=== PATIENT | male | born 1985 | race African-American/Black ===

== ENCOUNTER 2020-04-27 21:09 | Emergency (ER) | payer OTHER ==
[2020-04-27] MEDS ORDERED: KETOROLAC TROMETHAMINE INJ/PF 30 MG/1 ML SDV IV ONE (21:35)
--- NOTE | 2020-04-27 21:38 | ER Document Report ---
ED Medical Screen (RME) - General Chief Complaint: Flank Pain Stated Complaint: LEFT FLANK PAIN Time Seen by Provider: 04/27/20 21:27 - HPI Notes: 04/27/20 21:37 35-year-old male to the emergency department with complaints of left flank and left lower quadrant abdominal pain that began today. He denies any associated nausea or vomiting. He does admit to frequent urination. Denies any diarrhea. Last bowel movement was today. He states that he has not had any fevers or chills. He has never had a kidney stone before. He is never seen any blood in his urine. He denies any testicular pain or penile discharge. He denies any other complaints. On brief medical screening exam, he has tenderness to palpation in the left lower quadrant. I performed a brief medical screening exam on the patient determined that the patient needs further evaluation and management by main side provider. I have placed initial orders to help expedite care. Physical Exam - Vital signs Vitals: Temp Pulse Resp BP Pulse Ox 98.5 F 74 20 154/89 H 100 04/27/20 21:32 04/27/20 21:32 04/27/20 21:32 04/27/20 21:32 04/27/20 21:32 Course - Vital Signs Vital signs: Temp Pulse Resp BP Pulse Ox 98.5 F 74 20 154/89 H 100 04/27/20 21:32 04/27/20 21:32 04/27/20 21:32 04/27/20 21:32 04/27/20 21:32
[2020-04-27 22:09] LABS: APPEARANCE,URINE CLEAR; BILIRUBIN,URINE NEGATIVE (NEGATIVE); COLOR,URINE STRAW; GLUCOSE, URINE NEGATIVE (NEGATIVE); KETONES,URINE NEGATIVE (NEGATIVE); LEUKOCYTE ESTERASE,URINE NEGATIVE (NEGATIVE); NITRITE,URINE NEGATIVE (NEGATIVE); PROTEIN,URINE NEGATIVE (NEGATIVE); URINE SPECIFIC GRAVITY 1.006; UROBILINOGEN,URINE NEGATIVE mg/dL (<2.0)
[2020-04-27 22:21] LABS: ALBUMIN 4.9 g/dL (3.5-5.0); ALKALINE PHOSPHATASE 50 U/L (38-126); ANION GAP 11 (5-19); ASPARTATE AMINO TRANSFERASE 29 U/L (17-59); BILIRUBIN,TOTAL 0.6 mg/dL (0.2-1.3); BLOOD UREA NITROGEN 15 mg/dL (7-20); CALCIUM 10.1 mg/dL (8.4-10.2); CARBON DIOXIDE 25 mmol/L (22-30); CHLORIDE 101 mmol/L (98-107); GLUCOSE 95 mg/dL (75-110); POTASSIUM 4.2 mmol/L (3.6-5.0); TOTAL PROTEIN 8.3 g/dL (6.3-8.2)
[2020-04-27 22:29] LABS: ABSOLUTE EOSINOPHILS # (AUTO) 0.1 10^3/uL (0.0-0.6); ABSOLUTE LYMPHOCYTES (AUTO) 1.4 10^3/uL (0.5-4.7); ABSOLUTE MONOCYTES (AUTO) 0.6 10^3/uL (0.1-1.4); ABSOLUTE NEUT (AUTO) 3.1 10^3/uL (1.7-8.2); BASOPHILS % (AUTO) 0.7 % (0-2); EOSINOPHILS % (AUTO) 1.6 % (0-6); HEMATOCRIT 45.2 % (37.9-51.0); HEMOGLOBIN 15.3 g/dL (13.5-17.0); LYMPHOCYTES % (AUTO) 27.2 % (13-45); MEAN CORPUSCULAR HEMOGLOBIN 35.1 pg (27.0-33.4); MEAN CORPUSCULAR HGB CONC 33.9 g/dL (32.0-36.0); MEAN CORPUSCULAR VOLUME 104 fl (80-97); MONOCYTES % (AUTO) 11.4 % (3-13); PLATELET COUNT 225 10^3/uL (150-450); RED BLOOD COUNT 4.37 10^6/uL (4.35-5.55); RED CELL DISTRIBUTION WIDTH 13.3 % (11.5-14.0); SEGMENTED NEUTROPHILS % (AUTO) 59.1 % (42-78); TOTAL CELLS COUNTED % (AUTO) 100 %; WHITE BLOOD COUNT 5.2 10^3/uL (4.0-10.5)
--- NOTE | 2020-04-27 22:32 | RADIOLOGY REPORT (SQ) ---
CLINICAL INDICATION: left flank, LLQ abd pain, eval kidney stone. . TECHNIQUE: Noncontrast spiral axial CT imaging was obtained of the abdomen and pelvis with multiplanar reconstructions. This exam was performed according to our departmental dose-optimization program, which includes automated exposure control, adjustment of the mA and/or kV according to patient size and/or use of iterative reconstruction techniques. COMPARISON: None. CORRELATION: None. FINDINGS: Abdomen: The lung bases are grossly clear. The heart is of normal size. No evidence of pleural or pericardial fluid. The liver is of normal size contour and attenuation. The gallbladder is nondistended without inflammatory change. The pancreas is of grossly normal contour on this noncontrast examination. The spleen is unremarkable. The adrenals are unremarkable. The kidneys appear grossly normal without evidence of urolithiasis or hydronephrosis. Mild stranding within the peritoneal fat There is no evidence of free air. No free fluid. No bulky adenopathy. Abdominal aorta is nonaneurysmal. Pelvis: The bowel is nonobstructed. The bowel is unopacified with oral contrast. Pelvic contents are unremarkable. The appendix is normal. Visualized bones are unremarkable. Presumed bone island left ilium IMPRESSION: Imaging is degraded by patient motion, with resultant artifact. The best possible images were obtained. No acute intra-abdominal process. The cause of the patient's left flank and left lower quadrant pain is not identified on this examination.
--- NOTE | 2020-04-28 03:06 | ER Document Report ---
ED General - General Chief Complaint: Flank Pain Stated Complaint: LEFT FLANK PAIN Time Seen by Provider: 04/27/20 21:27 Primary Care Provider: [facility] [Provider Group] - Follow up as needed - HPI Notes: Patient is a 35-year-old male with no medical history who presents with left lower quadrant pain that began yesterday evening. He describes the pain as "squeezing "that is nonradiating. He reports an an increase in urination but denies dysuria, penile discharge, testicular pain, nausea, vomiting, diarrhea, constipation, fever, chest pain, shortness of breath. He has not taken any medicine medication for symptom relief. He denies any surgical history. He endorses smoking 1 to 2 cigars daily and social alcohol use, but denies recreational drug use. - Related Data Allergies/Adverse Reactions: No Known Allergies Allergy (Unverified 04/27/20 22:03) Home Medications: AMBIEN Past Medical History - General Information source: Patient - Social History Smoking Status: Current Every Day Smoker - Smokes 1-2 cigars daily Frequency of alcohol use: Social Drug Abuse: None Family History: Reviewed & Not Pertinent Review of Systems - Review of Systems Constitutional: No symptoms reported EENT: No symptoms reported Cardiovascular: No symptoms reported Respiratory: No symptoms reported Gastrointestinal: See HPI Genitourinary: See HPI Male Genitourinary: No symptoms reported Musculoskeletal: No symptoms reported Skin: No symptoms reported Hematologic/Lymphatic: No symptoms reported Neurological/Psychological: No symptoms reported Physical Exam - Vital signs Vitals: Temp Pulse Resp BP Pulse Ox 98.5 F 74 20 154/89 H 100 04/27/20 21:32 04/27/20 21:32 04/27/20 21:32 04/27/20 21:32 04/27/20 21:32 - Notes Notes: PHYSICAL EXAMINATION: VITALS: Vitals reviewed and within normal limits. GENERAL: Well-appearing, well-nourished and in no acute distress. HEAD: Atraumatic, normocephalic. EYES: Pupils equal, round, and reactive to light, extraocular movements intact, sclera anicteric, conjunctiva are normal. ENT: Nares patent. Moist mucous membranes. LUNGS: Breath sounds clear to auscultation bilaterally and equal. No wheezes, rales, or rhonchi. HEART: Regular, rate, and rhythm without murmurs. ABDOMEN: Soft, nontender, normoactive bowel sounds. No guarding, no rebound. No masses appreciated. GENITOURINARY: Normal external genitalia. Testicles nontender. No lesions or rashes visualized. EXTREMITIES: Normal range of motion, no pitting or edema. No cyanosis. NEUROLOGICAL: No focal neurological deficits. Moves all extremities spontaneously and on command. PSYCH: Normal mood, normal affect. SKIN: Warm, Dry, normal turgor, no rashes or lesions noted. Course - Re-evaluation Re-evalutation: Patient is a 35 y/o male with no medical hx who presents with LLQ abdominal pain that began yesterday afternoon. Vital signs are within normal limits. On exam, abdomen is soft and nontender with active bowel sounds in all 4 quadrants. CBC, CMP, UA are all unremarkable within normal limits. CT abdomen and pelvis shows motion artifact but no acute intra-abdominal process. Genitourinary exam performed and unremarkable. Based on presentation and workup I have a low suspicion for acute abdominal pathology. I discussed results with the patient and that some processes don't present immediately. I advised him to monitor his symptoms and return precautions were given. Follow up instructions given. Patient demonstrates decision making capacity. Patient understands and is in a greement with the plan. - Vital Signs Vital signs: Temp Pulse Resp BP Pulse Ox 97.7 F 56 L 18 140/76 H 99 04/28/20 03:11 04/28/20 03:31 04/28/20 03:31 04/28/20 03:31 04/28/20 03:31 - Laboratory Result Diagrams: 04/27/20 21:41 04/27/20 21:41 Laboratory results interpreted by me: 04/27/20 04/27/20 21:41 21:41 MCV 104 H MCH 35.1 H Total Protein 8.3 H - Diagnostic Test Radiology reviewed: Reports reviewed Radiology results interpreted by me: Abdomen/Pelvis CT 04/27/20 21:35 IMPRESSION: Imaging is degraded by patient motion, with resultant artifact. The best possible images were obtained. No acute intra-abdominal process. The cause of the patient's left flank and left lower quadrant pain is not identified on this examination. Discharge - Discharge Clinical Impression: Abdominal pain Qualifiers: Abdominal location: left lower quadrant Qualified Code(s): R10.32 - Left lower quadrant pain Condition: Stable Disposition: HOME, SELF-CARE Additional Instructions: Abdominal Pain There are many causes of abdominal pain. Pain can mean a serious problem requiring surgery (such as appendicitis). It can also be an innocent problem that goes away on its own (such as a viral infection). Often, time must pass to determine the cause of pain. The physician does not feel that hospitalization is necessary, at present. Things may change within the next 24 hours. Call the doctor or come back for re- examination if any problems occur, such as: (1) Pain that becomes more severe, steady, or becomes concentrated in one specific area. Also, pain that is more severe with movement or coughing. (2) Vomiting that persists or becomes more frequent. (3) Blood in the vomitus, urine, or bowel movements. Blood in the stool may have a tarry or black appearance. (4) Shaking chills or fever greater than 100 degrees F. (5) The abdomen becomes more distended or swollen. (6) Bowel movements cease. (7) Failure to improve as expected. Referrals: [facility] [Provider Group] - Follow up as needed
[2020-04-28 03:23] VITALS: BP 140/76
== END 2020-04-28 03:32 | disposition home or self-care (01) ==
LOC: ER 21:09
DX: R10.32 Left lower quadrant pain (principal); R10.9 Unspecified abdominal pain; R35.0 Frequency of micturition; F17.290 Nicotine dependence, other tobacco product, uncomplicated; Z79.899 Other long term (current) drug therapy
CPT/HCPCS: 36415; 74176; 80053; 81001; 85025; 99284